=== PATIENT | female | born 1970 | race Caucasian/White ===

== ENCOUNTER 2016-10-10 15:52 | Emergency (ER) | payer SELFPAY ==
--- NOTE | 2016-10-10 18:46 | ED.PDOC ---
History of Present Illness - General Chief Complaint: Neuro Symptoms/Deficits Time Seen by Provider: 10/10/16 15:57 Source: patient Exam Limitations: no limitations - History of Present Illness Initial Comments: The patient is a 46-year-old female presenting to the emergency room secondary to what is essentially a panic attack. The patient has a long- standing history of anxiety as well as a history of pseudoseizures. She has a history of depression and substance abuse. The patient had apparently been doing okay until she ran out of her clonazepam from her primary care doctor last week and her daughter had a miscarriage. The patient became depressed and started using methamphetamines again. That in combination with her lack of her regular medications and methamphetamines led to a panic attack. She felt like she couldn't breathe. She felt tingling mouth. She felt tingling in her hands. She did not throw up. The patient received a milligram of Ativan IM here which helped her relax. Her daughter came up and talk to her. She is now mentating clearly. She reports she is not any use meth anymore. She reports that she will follow up with [facility]. She is not suicidal. She has contracted for safety. She is feeling fine at this time. She will contact her primary care doctor for refills on her routine medications. Timing/Duration: 4-6 hours Severity: moderate Improving Factors: medication Worsening Factors: nothing Allergies/Adverse Reactions: Allergies NO KNOWN ALLERGY Allergy (Verified 05/08/15 10:42) Home Medications: Ambulatory Orders Buspirone HCl 30 mg PO DAILY 05/08/15 Citalopram Hydrobromide [CeleXA] 20 mg PO DAILY 05/08/15 Hydroxyzine HCl 40 mg PO BEDTIME 05/08/15 Ondansetron Tab [Zofran Tab] 4 mg PO BID PRN #8 tab 05/08/15 Clonazepam 0.5 mg PO BID #14 tab 10/10/16 Review of Systems - Review of Systems Constitutional: States: malaise EENTM: States: no symptoms reported Respiratory: States: short of breath Cardiology: States: no symptoms reported Gastrointestinal/Abdominal: States: no symptoms reported Genitourinary: States: no symptoms reported Musculoskeletal: States: back pain - chronic Skin: States: no symptoms reported Neurological: States: anxiety, depressed Endocrine: States: no symptoms reported All other Systems: No Change from Baseline Past Medical History (General) - Patient Medical History Hx Stroke: No Hx Hypertension: No Hx Diabetes: No - Vaccination History Hx Tetanus, Diphtheria Vaccination: Yes Hx Influenza Vaccination: No - Social History Hx Tobacco Use: No Hx Alcohol Use: No - Female History Patient : No Family Medical History - Family History Mother Family History: No Known Physical Exam - Physical Exam General Appearance: Alert, Anxious, Other - the patient is initially frantic and weeping and shaking and unable to tell me her routine medications. Eye Exam: bilateral normal Ears, Nose, Throat: hearing grossly normal, normal ENT inspection - poor dentition Neck: non-tender, full range of motion, supple, normal inspection Respiratory: chest non-tender, lungs clear, normal breath sounds, no respiratory distress, no accessory muscle use Cardiovascular/Chest: normal peripheral pulses, no edema, tachycardia Peripheral Pulses: radial,right: 2+, radial,left: 2+, dorsalis pedis,right: 2+, dorsalis pedis,left: 2+ Gastrointestinal/Abdominal: non tender, soft Rectal Exam: deferred Back Exam: normal inspection, no CVA tenderness, no vertebral tenderness Extremity: normal range of motion, non-tender, normal inspection, no pedal edema , normal capillary refill Neurologic: alert, other - after the Ativan she is alert and oriented 3 and in a fairly normal mood Skin Exam: normal color Comments: Vital Signs - 24 hr 10/10/16 16:30 Pulse Rate [ 86 monitor] Respiratory 22 Rate Blood Pressure 137/81 [Left Arm] O2 Sat by Pulse 96 Oximetry Progress - Progress Progress: 10/10/16 18:47 the patient is a 46-year-old female presenting due to a panic attack related to running out of her daily benzodiazepines for her anxiety as well as methamphetamine use and a recent social stressor. The patient has contracted for safety. She will contact her counselor early next week. She has agreed to not use the methamphetamines. The patient will be written for 1 week of her clonazepam. She needs to contact her primary care doctor to get a longer refill of this and her tramadol. She has agreed to this. ER warnings given. She needs to keep well hydrated. Departure - Departure Clinical Impression: Panic attack, Drug abuse Disposition: Discharge to Home or Self Care Condition: Fair Departure Forms: ED Discharge - Pt. Copy, Patient Portal Self Enrollment Instructions: Anxiety and Panic Attacks (Alternative Therapy), Drug Abuse and Drug Addiction Diet: regular diet Activity: increase activity as tolerated Referrals: WARREN NARANJO IV, FNP [Primary Care Provider] - 1-2 Weeks Prescriptions: Clonazepam 0.5 mg PO BID #14 tab Home Medications: Ambulatory Orders Buspirone HCl 30 mg PO DAILY 05/08/15 Citalopram Hydrobromide [CeleXA] 20 mg PO DAILY 05/08/15 Hydroxyzine HCl 40 mg PO BEDTIME 05/08/15 Ondansetron Tab [Zofran Tab] 4 mg PO BID PRN #8 tab 05/08/15 Clonazepam 0.5 mg PO BID #14 tab 10/10/16 Additional Instructions: the patient is a 46-year-old female presenting due to a panic attack related to running out of her daily benzodiazepines for her anxiety as well as methamphetamine use and a recent social stressor. The patient has contracted for safety. She will contact her counselor early next week. She has agreed to not use the methamphetamines. The patient will be written for 1 week of her clonazepam. She needs to contact her primary care doctor to get a longer refill of this and her tramadol. She has agreed to this. ER warnings given. She needs to keep well hydrated.
[2016-10-10 19:26] VITALS: BP 127/81; O2SAT 97
== END 2016-10-10 19:30 | disposition home or self-care (01) ==
LOC: ER 15:52
DX: F41.0 Panic disorder [episodic paroxysmal anxiety] (principal); F19.10 Other psychoactive substance abuse, uncomplicated; Z79.899 Other long term (current) drug therapy

== ENCOUNTER 2016-12-30 14:28 | Emergency (ER) | payer OTHER ==
[2016-12-30 14:48] VITALS: TEMP 98.3; O2SAT 98
[2016-12-30 15:09] VITALS: BP 124/75
--- NOTE | 2016-12-30 15:11 | ED.PDOC ---
History of Present Illness - General Chief Complaint: Behavioral / Psych Stated Complaint: anxiety Time Seen by Provider: 12/30/16 15:02 Source: patient Exam Limitations: no limitations - History of Present Illness Initial Comments: PT STATES SHE TAKES CHRONIC CLONAZEPAM 2 MG PO QDAY FOR ANXIETY. BEEN IN [facility] 1 WK AND LAST CLONAZ WAS 1 WEEK AGO. PT STATES WHEN SHE BECOMES ANXIOUS, SHE DEVELOPS A TREMOR IN BUE, SHE PRESENTLY HAS. HAS INCR ANXIETY BECAUSE HER GRANDCHILD JUST . Timing/Duration: just prior to arrival Severity: moderate Associated Symptoms: anxiety Allergies/Adverse Reactions: Allergies NO KNOWN ALLERGY Allergy (Verified 10/10/16 19:30) Home Medications: Ambulatory Orders Buspirone HCl 30 mg PO DAILY 05/08/15 Citalopram Hydrobromide [CeleXA] 20 mg PO DAILY 05/08/15 Hydroxyzine HCl 40 mg PO BEDTIME 05/08/15 Ondansetron Tab [Zofran Tab] 4 mg PO BID PRN #8 tab 05/08/15 Clonazepam 0.5 mg PO BID #14 tab 10/10/16 Clonazepam 1 mg PO DAILY 2 Days 12/30/16 Review of Systems - Review of Systems Constitutional: States: no symptoms reported EENTM: States: no symptoms reported Respiratory: States: no symptoms reported Cardiology: States: no symptoms reported Gastrointestinal/Abdominal: States: no symptoms reported Genitourinary: States: no symptoms reported Musculoskeletal: States: no symptoms reported Skin: States: no symptoms reported Neurological: States: tremors. Denies: seizure Endocrine: States: no symptoms reported Hematologic/Lymphatic: States: no symptoms reported All other Systems: Reviewed and Negative Past Medical History (General) - Patient Medical History Hx Seizures: - dx of pseudo seizures Hx Stroke: No Hx Congestive Heart Failure: No Hx Hypertension: No Hx Diabetes: No - Vaccination History Hx Tetanus, Diphtheria Vaccination: Yes Hx Influenza Vaccination: No Hx Pneumococcal Vaccination: No - Social History Hx Tobacco Use: No Hx Alcohol Use: No Hx Substance Use: Yes - meth - Female History Patient : No Family Medical History - Family History Mother Family History: No Known Physical Exam - Physical Exam General Appearance: Alert, Anxious Eyes, Ears, Nose, Throat Exam: PERRL/EOMI, normal ENT inspection Neck: non-tender, normal inspection Respiratory: chest non-tender, lungs clear, normal breath sounds Cardiovascular/Chest: normal peripheral pulses, regular rate, rhythm Peripheral Pulses: radial,right: 2+, radial,left: 2+ Gastrointestinal/Abdominal: normal bowel sounds, non tender, soft Extremities Exam: non-tender, normal range of motion, no evidence of injury, no edema, deformity, other - MOTOR AND SENSORY WNL. PT SHAKES HER BUE AND THEY HAVE BEEN SHAKING SINCE ADMISSION. SHE IS AWAKE, ALERT AND MAKING CLEAR, NL CONVERSATION. IT IS NOT A SEIZURE. Neurological: alert, product safety associate II-XII nml as tested, oriented x 3 Appearance: appropriate appearance, appropriate insight Behavior/Eye Contact/Speech: cooperative, good eye contact, normal speech Thoughts/Hallucinations: normal thought pattern, no apparent hallucination Skin Exam: normal color, warm/dry Progress - Progress Progress: 12/30/16 16:10 UA NEG. CMP UNREMARKABLE. CBC - HGB 10, MILD ANEMIA WHICH IS NOT RELATED TO HER ANXIETY-INDUCED TREMOR. F /U W/ PCP TOMORROW FOR ANXIETY AND IN 2 WKS TO RECHECK HGB. Departure - Departure Clinical Impression: Anxiety, Anemia Disposition: Long-Term Condition: Good Departure Forms: ED Discharge - Pt. Copy, Patient Portal Self Enrollment Instructions: DI for Anxiety -- Adult Diet: resume usual diet Activity: increase activity as tolerated Referrals: WARREN NARANJO IV, FNP [Nurse Practitioner] - 1-2 Days Prescriptions: Clonazepam 1 mg PO DAILY 2 Days Home Medications: Ambulatory Orders Buspirone HCl 30 mg PO DAILY 05/08/15 Citalopram Hydrobromide [CeleXA] 20 mg PO DAILY 05/08/15 Hydroxyzine HCl 40 mg PO BEDTIME 05/08/15 Ondansetron Tab [Zofran Tab] 4 mg PO BID PRN #8 tab 05/08/15 Clonazepam 0.5 mg PO BID #14 tab 10/10/16 Clonazepam 1 mg PO DAILY 2 Days 12/30/16 Additional Instructions: The labs today show mild anemia (low hemoglobin). Please see your doctor tomorrow regarding the anxiety. Please see your doctor again in 2 weeks to recheck your hemoglobin.
== END 2016-12-30 16:19 ==
LOC: ER 14:28
DX: F41.9 Anxiety disorder, unspecified (principal); D64.9 Anemia, unspecified; R25.1 Tremor, unspecified; Z79.899 Other long term (current) drug therapy

== ENCOUNTER 2018-04-22 20:56 | Emergency (ER) | payer SELFPAY ==
[2018-04-22 21:43] VITALS: O2SAT 99
--- NOTE | 2018-04-22 22:16 | ED.PDOC ---
History of Present Illness - General Chief Complaint: Skin/Abrasion/Tear Stated Complaint: "shingles" Time Seen by Provider: 04/22/18 22:14 Source: RN notes reviewed, Vital Signs reviewed Additional Information: 47 YEAR OLD WHITE FEMALE PRESENTS WITH SKIN RASH LOCATION LEFT POSTERIOR CHEST WALL IT STARTED 3 DAYS AGO AND IT HAS BEEN PAINFUL AND ITCHY SHE HAS HISTORY OF DEPRESSION AND ANXIETY - History of Present Illness Timing/Duration: getting worse Severity: moderate Improving Factors: nothing Worsening Factors: nothing Associated Symptoms: denies symptoms Allergies/Adverse Reactions: Allergies NO KNOWN ALLERGY Allergy (Verified 10/10/16 19:30) Home Medications: Ambulatory Orders Buspirone HCl 30 mg PO DAILY 05/08/15 Citalopram Hydrobromide [CeleXA] 20 mg PO DAILY 05/08/15 Hydroxyzine HCl 40 mg PO BEDTIME 05/08/15 Ondansetron Tab [Zofran Tab] 4 mg PO BID PRN #8 tab 05/08/15 Clonazepam 0.5 mg PO BID #14 tab 10/10/16 Clonazepam 1 mg PO DAILY 2 Days tab 12/30/16 Acyclovir [Zovirax] 800 mg PO Q6HR #40 tab 04/22/18 Clonazepam [Klonopin] 1 mg PO Q12HRS #30 tab 04/22/18 Review of Systems - Review of Systems Constitutional: States: no symptoms reported EENTM: States: no symptoms reported Respiratory: States: no symptoms reported Cardiology: States: no symptoms reported Genitourinary: States: no symptoms reported Musculoskeletal: States: no symptoms reported Skin: States: see HPI Neurological: States: no symptoms reported Endocrine: States: no symptoms reported Hematologic/Lymphatic: States: no symptoms reported Past Medical History (General) - Patient Medical History Hx Seizures: - dx of pseudo seizures Hx Stroke: No Hx Congestive Heart Failure: No Hx Hypertension: No Hx Diabetes: No Hx Cancer: Yes - ovarian CA Surgical History: no surgical history - Vaccination History Hx Tetanus, Diphtheria Vaccination: Yes Hx Influenza Vaccination: No Hx Pneumococcal Vaccination: No - Social History Hx Tobacco Use: No Hx Alcohol Use: No Hx Substance Use: Yes - meth - Female History Patient : No Family Medical History - Family History Mother Family History: No Known Physical Exam - Physical Exam General Appearance: Alert, Comfortable Eyes, Ears, Nose, Throat Exam: normal ENT inspection, TMs normal, pharynx normal Neck: non-tender, full range of motion, supple Cardiovascular/Chest: normal peripheral pulses, regular rate, rhythm, no edema Respiratory: chest non-tender, lungs clear, normal breath sounds, no respiratory distress Extremity: normal range of motion, non-tender, normal inspection Neurologic: finisher wallboard and plasterboard II-XII nml as tested, no motor/sensory deficits, normal mood/ affect, oriented x 3 Skin Exam: warm/dry Skin Problem Location: torso, other - LEFT POSTERIOR CHEST WALL SHE HAS PATCHY RED VESICULAR LEISION Departure - Departure Clinical Impression: Shingles rash, Urticaria Time of Disposition: 22:19 Disposition: Discharge to Home or Self Care Condition: Fair Departure Forms: ED Discharge - Pt. Copy, Patient Portal Self Enrollment Diet: resume usual diet Referrals: Prasanth Gonzalez MD [Primary Care Provider] - 1-2 Weeks Prescriptions: Acyclovir [Zovirax] 800 mg PO Q6HR #40 tab Clonazepam [Klonopin] 1 mg PO Q12HRS #30 tab Home Medications: Ambulatory Orders Buspirone HCl 30 mg PO DAILY 05/08/15 Citalopram Hydrobromide [CeleXA] 20 mg PO DAILY 05/08/15 Hydroxyzine HCl 40 mg PO BEDTIME 05/08/15 Ondansetron Tab [Zofran Tab] 4 mg PO BID PRN #8 tab 05/08/15 Clonazepam 0.5 mg PO BID #14 tab 10/10/16 Clonazepam 1 mg PO DAILY 2 Days tab 12/30/16 Acyclovir [Zovirax] 800 mg PO Q6HR #40 tab 04/22/18 Clonazepam [Klonopin] 1 mg PO Q12HRS #30 tab 04/22/18
[2018-04-22] MEDS ORDERED: HYDROCOD/APAP 7.5/325 (ER DISP) #3 TAB PO ONE (22:21)
[2018-04-22] MEDS ORDERED: ACYCLOVIR 200 MG CAP ONE (22:51)
[2018-04-22 23:32] VITALS: BP 128/56; TEMP 97
[2018-04-23] MEDS ORDERED: ACYCLOVIR 200 MG CAP PO SCH (06:00)
== END 2018-04-22 23:05 | disposition home or self-care (01) ==
LOC: ER 20:56
DX: B02.9 Zoster without complications (principal); L50.9 Urticaria, unspecified; F41.9 Anxiety disorder, unspecified; F32.9 Major depressive disorder, single episode, unspecified; Z85.43 Personal history of malignant neoplasm of ovary; Z79.899 Other long term (current) drug therapy

== ENCOUNTER 2019-02-10 12:34 | Emergency (ER) | payer SELFPAY ==
[2019-02-10 13:23] VITALS: O2SAT 100
[2019-02-10 14:58] VITALS: BP 129/78; TEMP 97.8
== END 2019-02-10 14:58 | disposition home or self-care (01) ==
LOC: ER 12:34
DX: M54.41 Lumbago with sciatica, right side (principal); R56.9 Unspecified convulsions; F32.9 Major depressive disorder, single episode, unspecified; Z86.73 Personal history of transient ischemic attack (TIA), and cerebral infarction without residual deficits; Z79.899 Other long term (current) drug therapy; Z85.43 Personal history of malignant neoplasm of ovary

== ENCOUNTER 2019-04-04 11:51 | Emergency (ER) | payer SELFPAY ==
[2019-04-04] MEDS ORDERED: SODIUM CHLORIDE 0.9% (FLUSH) 10 ML SYG IV PRN (12:09)
[2019-04-04] MEDS ORDERED: SODIUM CHLORIDE 0.9% 1000ML 1,000 ML IVS ONE (12:09)
[2019-04-04] MEDS ORDERED: ONDANSETRON INJ 4 MG/2 ML VIAL IV ONE (12:09)
[2019-04-04] MEDS ORDERED: MORPHINE SULFATE INJ 10 MG/ML VIAL IV ONE ×2 (12:10→14:59)
[2019-04-04] MEDS ORDERED: CEFEPIME 2 GM in SODIUM CHL 0.9% 50ML MIN-BAG+ 50 ML IVPB ONE (12:43)
--- NOTE | 2019-04-04 12:47 | ED.PDOC ---
History of Present Illness - General Chief Complaint: GI Problem Stated Complaint: R abdominal discomfort, nausea Time Seen by Provider: 04/04/19 11:58 Information Source: patient - History of Present Illness Initial Comments: 48 y/o F presents to the ED c/o 1 week of worsening upper abd pain. She reports intermittent episodes of bilious vomiting as well. She denies diarrhea or fevers. She reports that she was once told that her liver tests were elevated by [facility] but cannot remember when and denies any other hx of liver dz. She has a hx of previous methamphetamine use but denies tobacco or EtOH. She reports the pain is 10/10 in severity and sharp in the epigastric and RUQ areas. She has tried several OTC medications without improvement in her sx. Review of Systems - Review of Systems Constitutional: Denies: chills, fever EENTM: Denies: nose congestion, throat pain Respiratory: Denies: cough, short of breath Cardiology: Denies: chest pain, palpitations Gastrointestinal/Abdominal: States: abdominal pain, nausea, vomiting. Denies: diarrhea Genitourinary: Denies: dysuria, frequency Musculoskeletal: Denies: joint pain, muscle pain Skin: Denies: lesions, rash Neurological: Denies: headache, numbness Past Medical History (General) - Patient Medical History Hx Seizures: - dx of pseudo seizures Hx Stroke: No Hx of COPD: No Hx Cardiac Disorders: No Hx Congestive Heart Failure: No Hx Hypertension: No Hx Diabetes: No Hx Cancer: Yes - Ovarian Hx MRSA: No Surgical History: no surgical history - Vaccination History Hx Tetanus, Diphtheria Vaccination: Yes Hx Influenza Vaccination: No Hx Pneumococcal Vaccination: No - Social History Hx Tobacco Use: No Hx Alcohol Use: No Hx Substance Use: No Hx Substance Use Treatment: No Hx Depression: Yes - Female History Patient is a Female of Child Bearing Age (10 -59 yrs old): Yes Patient : No Family Medical History - Family History Mother Family History: No Known Living Status: Still Living Physical Exam - Physical Exam General Appearance: Alert, Frail, Other - thin Eyes, Ears, Nose, Throat Exam: PERRL/EOMI, pharynx normal, scleral icterus (R), scleral icterus (L) Neck: full range of motion, normal inspection Respiratory: lungs clear, normal breath sounds, no respiratory distress Cardiovascular/Chest: normal peripheral pulses, regular rate, rhythm, no edema, no murmur Peripheral Pulses: 2+ Gastrointestinal/Abdominal: normal bowel sounds, guarding, tenderness - epigastric and RUQ Extremity: normal range of motion, normal inspection Neurologic: no motor/sensory deficits, alert, oriented x 3 Skin Exam: warm/dry, jaundice Progress - Progress Progress: 04/04/19 13:45 Discussed all lab and CT findings with pt along with need to transfer for ERCP and then cholecystectomy. Pt understands and voiced no preference on facility. 14:[address] Ulrich, hospitalist at [facility], wants to consult GI and will call back. 14:18: Dr. Ulrich, will accept pt in transfer. 14:25 Pt updated on transfer plans to [facility]. All questions/concerns were addressed. - Results/Orders Results/Orders: 04/04/19 12:09 Hold Metformin x 48Hrs [id number] IV Care:Saline Lock per Protoc QSHIFT Sodium Chloride 0.9% (Flush) [Saline Flush Syringe] 10 ml IV PRN PRN 04/04/19 13:28 BLOOD CULTURE Stat 04/04/19 13:51 Urine Culture Stat 04/04/19 14:32 Sodium Chloride 0.9% 1000ML [Ns 1000 ml] 1,000 ml IVS .QD Laboratory Results - last 24 hr 04/04/19 04/04/19 04/04/19 12:05 12:05 12:05 WBC 19.6 H RBC 3.16 L Hgb 9.7 L Hct 28.9 L MCV 91.3 MCH 30.8 MCHC 33.7 RDW 18.2 H Plt Count 986 H MPV 7.3 L Absolute Neuts (auto) Not Reportable Absolute Lymphs (auto) Not Reportable Absolute Monos (auto) Not Reportable Absolute Eos (auto) Not Reportable Neutrophils % Not Reportable Neutrophils % (Manual) 87.0 H Lymphocytes % Not Reportable Lymphocytes % (Manual) 6.0 Monocytes % Not Reportable Monocytes % (Manual) 6.0 Eosinophils % Not Reportable Basophils % Not Reportable PT INR Sodium 135 Potassium 3.5 L Chloride 103 Carbon Dioxide 21 Anion Gap 14.5 BUN 12 Creatinine 0.81 BUN/Creatinine Ratio 14.8 Random Glucose 115 H Serum Osmolality 270.8 L Lactic Acid Calcium 8.7 Total Bilirubin 6.0 H* Direct Bilirubin 4.2 H Indirect Bilirubin 1.8 H AST 37 ALT 17 Alkaline Phosphatase 1039 H Serum Total Protein 7.8 Albumin 2.5 L Lipase Serum HCG, Qual Negative Urine Color Urine Appearance Urine pH Ur Specific [place] Urine Protein Urine Glucose (UA) Urine Ketones Urine Blood Urine Nitrite Urine Bilirubin Urine Urobilinogen Ur Leukocyte Esterase Urine RBC Urine WBC Ur Epithelial Cells Urine Bacteria Urine Mucus 04/04/19 04/04/19 04/04/19 12:05 12:55 12:55 WBC RBC Hgb Hct MCV MCH MCHC RDW Plt Count MPV Absolute Neuts (auto) Absolute Lymphs (auto) Absolute Monos (auto) Absolute Eos (auto) Neutrophils % Neutrophils % (Manual) Lymphocytes % Lymphocytes % (Manual) Monocytes % Monocytes % (Manual) Eosinophils % Basophils % PT 10.4 INR 1.04 Sodium Potassium Chloride Carbon Dioxide Anion Gap BUN Creatinine BUN/Creatinine Ratio Random Glucose Serum Osmolality Lactic Acid 1.5 Calcium Total Bilirubin Direct Bilirubin Indirect Bilirubin AST ALT Alkaline Phosphatase Serum Total Protein Albumin Lipase 758 H Serum HCG, Qual Urine Color Urine Appearance Urine pH Ur Specific [place] Urine Protein Urine Glucose (UA) Urine Ketones Urine Blood Urine Nitrite Urine Bilirubin Urine Urobilinogen Ur Leukocyte Esterase Urine RBC Urine WBC Ur Epithelial Cells Urine Bacteria Urine Mucus 04/04/19 13:51 WBC RBC Hgb Hct MCV MCH MCHC RDW Plt Count MPV Absolute Neuts (auto) Absolute Lymphs (auto) Absolute Monos (auto) Absolute Eos (auto) Neutrophils % Neutrophils % (Manual) Lymphocytes % Lymphocytes % (Manual) Monocytes % Monocytes % (Manual) Eosinophils % Basophils % PT INR Sodium Potassium Chloride Carbon Dioxide Anion Gap BUN Creatinine BUN/Creatinine Ratio Random Glucose Serum Osmolality Lactic Acid Calcium Total Bilirubin Direct Bilirubin Indirect Bilirubin AST ALT Alkaline Phosphatase Serum Total Protein Albumin Lipase Serum HCG, Qual Urine Color [place] H Urine Appearance Clear Urine pH 6.0 Ur Specific [place] 1.010 Urine Protein 30 Urine Glucose (UA) Negative Urine Ketones Negative Urine Blood Negative Urine Nitrite Positive H Urine Bilirubin Large Urine Urobilinogen >= 8.0 H Ur Leukocyte Esterase Negative Urine RBC 1-3 Urine WBC 3-5 H Ur Epithelial Cells 3-5 Urine Bacteria 3+ H Urine Mucus Moderate CT Abd/Pelvis: IMPRESSION: Cholelithiasis with xanthogranulomatous cholecystitis, choledocholithiasis, intrahepatic and extrahepatic biliary duct dilation. One gallstone measuring up to 1 cm diameter lies either at the ampulla or inside the duodenal lumen. A few slightly dilated proximal small bowel loops concerning for developing ileus especially gallstone ileus. Surgical consultation recommended. No pancreatic duct dilation, but questionable subtle peripancreatic inflammation suggests developing pancreatitis. Correlate with amylase/lipase levels. Findings and recommendations were reported by telephone to Dr. Tucker by me at the time of this report. Electronically signed by: Joaquín Pastor MD 04/04/2019 1:38 PM CDT Departure - Departure Clinical Impression: Choledocholithiasis with acute cholecystitis with obstruction Sepsis Qualifiers: Sepsis type: sepsis due to unspecified organism Sepsis acute organ dysfunction status: without acute organ dysfunction Qualified Code(s): A41.9 - Sepsis, unspecified organism UTI (urinary tract infection) Qualifiers: Urinary tract infection type: site unspecified Hematuria presence: without hematuria Qualified Code(s): N39.0 - Urinary tract infection, site not specified Time of Disposition: 14:26 Disposition: Transfer to Hospital Condition: Fair Home Medications: Ambulatory Orders Buspirone HCl 30 mg PO DAILY 05/08/15 Hydroxyzine HCl 40 mg PO BEDTIME 05/08/15 Escitalopram [Lexapro] 10 mg PO DAILY 04/04/19 Transfer to Outside Facility - Transfer Information Decision to Transfer Date: 04/04/19 Decision to Transfer Time: 13:40 Reason for Transfer: required specialist not available Accepting Provider:: Dr. Ulrich Accepting Facility: [facility]
[2019-04-04] MEDS ORDERED: CEFEPIME 2 GM VIAL ONE (12:55)
[2019-04-04] MEDS ORDERED: SODIUM CHL 0.9% 50ML MIN-BAG+ 50 ML IVPB ONE (12:55)
--- NOTE | 2019-04-04 13:40 | CT ---
EXAM DESCRIPTION: Abdomen/Pelvis w/Contrast CLINICAL HISTORY: epigastric/RUQ pain COMPARISON: MRI lumbar spine May 23, 2008 TECHNIQUE: CT of the abdomen and Pelvis was performed with IV contrast. This exam was performed according to our departmental dose-optimization program, which includes automated exposure control, adjustment of the mA and/or kV according to patient size and/or use of iterative reconstruction technique. FINDINGS: 1 cm gallstone in the gallbladder. The gallbladder is at the close of normal size, measuring just under four superior transverse diameter. Asymmetric gallbladder wall thickening involving the lateral gallbladder wall measuring up to 11 mm diameter with rounded areas of decreased attenuation within the involved segment of the gallbladder wall highly suggestive of xanthogranulomatous cholecystitis. Intra and extrahepatic biliary duct dilation with dilation of the intrapancreatic common bile duct up to 17 mm diameter. There are a few small round peripherally calcified structures in or immediately adjacent to the distal common bile duct concerning for choledocholithiasis. One of these may be in the duodenal lumen or at the ampulla of Vater. The pancreatic duct is not dilated. Questionable subtle peripancreatic inflammation suggesting the possibility of mild pancreatitis. No pleural effusion. The spleen, adrenals and kidneys are unremarkable. Probable small cyst in the mid right kidney. There are a few slightly dilated small bowel loops in the left mid abdomen which contain fluid, gas and/or feculent material and suggest developing ileus. The uterus and ovaries are unremarkable for patient's age with a 2.6 cm right ovarian cyst which is likely physiologic and requires no further follow-up. The bladder is unremarkable. Moderate amount of colonic stool and gas without colonic wall thickening or pericolonic inflammation. 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 No acute bone lesion. IMPRESSION: Cholelithiasis with xanthogranulomatous cholecystitis, choledocholithiasis, intrahepatic and extrahepatic biliary duct dilation. One gallstone measuring up to 1 cm diameter lies either at the ampulla or inside the duodenal lumen. A few slightly dilated proximal small bowel loops concerning for developing ileus especially gallstone ileus. Surgical consultation recommended. No pancreatic duct dilation, but questionable subtle peripancreatic inflammation suggests developing pancreatitis. Correlate with amylase/lipase levels. Findings and recommendations were reported by telephone to Dr. Tucker by me at the time of this report. Electronically signed by: Joaquín Pastor MD 04/04/2019 1:38 PM CDT
[2019-04-04] MEDS ORDERED: SODIUM CHLORIDE 0.9% 1000ML 1,000 ML IVS PRN (14:32)
[2019-04-04 14:40] VITALS: O2SAT 98
[2019-04-04 19:57] VITALS: BP 112/71; TEMP 97.9
== END 2019-04-04 14:50 | disposition short-term general hospital (02) ==
LOC: ER 11:51
DX: K80.43 Calculus of bile duct with acute cholecystitis with obstruction (principal); A41.9 Sepsis, unspecified organism; N39.0 Urinary tract infection, site not specified; F32.9 Major depressive disorder, single episode, unspecified; Z85.43 Personal history of malignant neoplasm of ovary
CPT/HCPCS: 74177; 80048; 80076; 81001; 83605; 83690; 84703; 85025; 85610; 87040; 87086; J0692; J2270; J2405; J7030; J7050

== ENCOUNTER 2019-07-25 12:24 | Emergency (ER) | payer SELFPAY ==
[2019-07-25 12:40] VITALS: TEMP 97.9
--- NOTE | 2019-07-25 12:59 | ED.PDOC ---
History of Present Illness - General Chief Complaint: Dental/Mouth Stated Complaint: dental pain Time Seen by Provider: 07/25/19 12:56 Source: patient Exam Limitations: no limitations - History of Present Illness Initial Comments: The patient is a 49-year-old female presented to the emergency room secondary to multiple infected dental caries to the anterior mandible. The patient has multiple fractured teeth and caries. No obvious abscess formation but she does have a small amount of pus draining from the base of several teeth. No sepsis. No fever. This is obviously uncomfortable. Timing/Duration: 1 week Severity: moderate Improving Factors: nothing Worsening Factors: eating Associated Symptoms: malaise Allergies/Adverse Reactions: Allergies NO KNOWN ALLERGY Allergy (Verified 02/10/19 13:09) Home Medications: Ambulatory Orders Buspirone HCl 30 mg PO DAILY 05/08/15 Hydroxyzine HCl [Hydroxyzine Hydrochloride] 40 mg PO BEDTIME 05/08/15 Escitalopram [Lexapro] 10 mg PO DAILY 04/04/19 Cephalexin Monohydrate [Keflex] 500 mg PO Q8H #30 cap 07/25/19 Review of Systems - Review of Systems Constitutional: States: malaise EENTM: States: other - Dental pain Respiratory: States: no symptoms reported Cardiology: States: no symptoms reported Gastrointestinal/Abdominal: States: no symptoms reported Genitourinary: States: no symptoms reported Musculoskeletal: States: no symptoms reported Skin: States: no symptoms reported Neurological: States: no symptoms reported Endocrine: States: no symptoms reported All other Systems: No Change from Baseline Past Medical History (General) - Patient Medical History Hx Seizures: No Hx Stroke: No Hx Dementia: No Hx Asthma: No Hx of COPD: No Hx Cardiac Disorders: No Hx Congestive Heart Failure: No Hx Pacemaker: No Hx Hypertension: No Hx Thyroid Disease: No Hx Diabetes: No Hx Gastroesophageal Reflux: No Hx Renal Disease: No Hx Cancer: No Hx of HIV: No Hx Hepatitis C: No Hx MRSA: No Surgical History: no surgical history - Vaccination History Hx Tetanus, Diphtheria Vaccination: No Hx Influenza Vaccination: No Hx Pneumococcal Vaccination: No Immunizations Up to Date: No - Social History Hx Tobacco Use: No Hx Chewing Tobacco Use: No Hx Alcohol Use: No Hx Substance Use: No Hx Substance Use Treatment: No Hx Depression: No Feels Threatened In Home Enviroment: No Feels Threatened In a Relationship: No Hx Physical Abuse: No Hx Emotional Abuse: No Hx Suspected Abuse: No - Female History Patient is a Female of Child Bearing Age (10 -59 yrs old): Yes Patient : No - Triage Comment ED Triage Comment: Swelling and pain on the lower jaw. Family Medical History - Family History Mother Family History: No Known Living Status: Still Living Physical Exam - Physical Exam General Appearance: Alert, Comfortable, No apparent distress Eye Exam: bilateral normal Ears, Nose, Throat: hearing grossly normal, other - Extremely poor dentition. See history of present illness. Neck: full range of motion, supple Respiratory: no respiratory distress, no accessory muscle use Cardiovascular/Chest: no edema Rectal Exam: deferred Extremity: normal range of motion, normal capillary refill Neurologic: customer service leader II-XII nml as tested, alert, normal mood/affect, oriented x 3 Skin Exam: normal color Comments: Vital Signs - 24 hr 07/25/19 12:35 Temperature 97.9 F Pulse Rate [R 77 Finger] Respiratory 16 Rate Blood Pressure 144/101 [Right Arm] O2 Sat by Pulse 97 Oximetry Progress - Progress Progress: 07/25/19 12:58 The patient is a 49-year-old female presenting secondary to infected dental caries. She will be placed on Keflex for the next 10 days. She needs to maintain good dental hygiene along with mouth washing. She needs to follow-up with a dentist likely for tooth extractions in the near future. ER warnings wer e given for any obvious worsening. No evidence of sepsis at this time. No evidence of drainable abscess at this time. [email or web address] [id number] Departure - Departure Clinical Impression: Infected dental caries Disposition: Discharge to Home or Self Care Condition: Fair Departure Forms: ED Discharge - Pt. Copy, Patient Portal Self Enrollment Instructions: DI for Dental Pain Diet: regular diet Activity: increase activity as tolerated Referrals: WARREN NARANJO IV, COOK FRY [Primary Care Provider] - 1-2 Weeks Prescriptions: Cephalexin Monohydrate [Keflex] 500 mg PO Q8H #30 cap Home Medications: Ambulatory Orders Buspirone HCl 30 mg PO DAILY 05/08/15 Hydroxyzine HCl [Hydroxyzine Hydrochloride] 40 mg PO BEDTIME 05/08/15 Escitalopram [Lexapro] 10 mg PO DAILY 04/04/19 Cephalexin Monohydrate [Keflex] 500 mg PO Q8H #30 cap 07/25/19 Additional Instructions: The patient is a 49-year-old female presenting secondary to infected dental caries. She will be placed on Keflex for the next 10 days. She needs to maintain good dental hygiene along with mouth washing. She needs to follow-up with a dentist likely for tooth extractions in the near future. ER warnings were given for any obvious worsening. No evidence of sepsis at this time. No evidence of drainable abscess at this time.
[2019-07-25 13:04] VITALS: BP 155/78; O2SAT 98
== END 2019-07-25 13:04 | disposition home or self-care (01) ==
LOC: ER 12:24
DX: K04.7 Periapical abscess without sinus (principal); K02.9 Dental caries, unspecified; S02.5XXA Fracture of tooth (traumatic), initial encounter for closed fracture; X58.XXXA Exposure to other specified factors, initial encounter; Y92.9 Unspecified place or not applicable; Z79.899 Other long term (current) drug therapy

== ENCOUNTER 2019-11-18 11:28 | Emergency (ER) | payer SELFPAY ==
[2019-11-18] MEDS ORDERED: IBUPROFEN 200 MG TAB PO ONE (11:45)
[2019-11-18] MEDS ORDERED: METHOCARBAMOL 750 MG TAB PO ONE (11:45)
[2019-11-18] MEDS ORDERED: traMADol HCL 50 MG TAB PO ONE (11:45)
[2019-11-18 11:50] VITALS: TEMP 97; O2SAT 100
--- NOTE | 2019-11-18 11:50 | ED.PDOC ---
History of Present Illness - General Chief Complaint: Back Pain or Injury Stated Complaint: back pain Time Seen by Provider: 11/18/19 11:41 Source: patient, RN notes reviewed, Vital Signs reviewed Exam Limitations: no limitations - History of Present Illness Initial Comments: This is a 49-year-old female with longstanding history of chronic low back pain, previously saw pain management in [place] greater than 10 years ago. She is reporting worsening back pain radiating down the right leg for the past 2 days after she injured her back lifting a mattress into a pickup truck. She denies any incontinence of bowel/bladder. She denies any falls. No fevers, no prior back surgeries. She states the pain is similar in quality and location as her chronic back pain, but more severe.Patient is able to ambulate unassisted Allergies/Adverse Reactions: Allergies NO KNOWN ALLERGY Allergy (Verified 02/10/19 13:09) Home Medications: Ambulatory Orders Ibuprofen [Motrin] 400 mg PO Q6HR PRN #20 tab 11/18/19 Methocarbamol [Robaxin] 500 - 1,000 mg PO Q6HR PRN #20 tab 11/18/19 RX: Tramadol HCl 50 - 100 mg PO Q6H PRN #20 tab 11/18/19 Review of Systems - Review of Systems Constitutional: Denies: chills, fever Respiratory: Denies: orthopnea, short of breath Cardiology: Denies: chest pain, edema Gastrointestinal/Abdominal: States: other - No incontinence of bowel. Denies: abdominal pain, nausea, vomiting Genitourinary: States: other - No incontinence of urine. Denies: dysuria, frequency, hematuria Musculoskeletal: States: back pain. Denies: joint pain, muscle stiffness, neck pain Neurological: Denies: numbness, paresthesia, seizure, tingling, weakness Past Medical History (General) - Patient Medical History Hx Seizures: No Hx Stroke: No Hx Dementia: No Hx Asthma: No Hx of COPD: No Hx Cardiac Disorders: No Hx Congestive Heart Failure: No Hx Pacemaker: No Hx Hypertension: No Hx Thyroid Disease: No Hx Diabetes: No Hx Gastroesophageal Reflux: No Hx Renal Disease: No Hx Cancer: No Hx of HIV: No Hx Hepatitis C: No Hx MRSA: No - Vaccination History Hx Tetanus, Diphtheria Vaccination: No Hx Influenza Vaccination: No Hx Pneumococcal Vaccination: No - Social History Hx Tobacco Use: No Hx Chewing Tobacco Use: No Hx Alcohol Use: No Hx Substance Use: No Hx Substance Use Treatment: No Hx Depression: No Hx Physical Abuse: No Hx Emotional Abuse: No Hx Suspected Abuse: No - Female History Patient : No Family Medical History - Family History Mother Family History: No Known Living Status: Still Living Physical Exam - Physical Exam General Appearance: Alert, Comfortable, No apparent distress Neck Exam: non-tender, full range of motion, normal alignment Cardiovascular/Respiratory: regular rate, rhythm, no M/R/G, normal peripheral pulses, no JVD, normal breath sounds Gastrointestinal/Abdominal: non tender, soft Back Exam: normal inspection, no CVA tenderness, no vertebral tenderness, other - Right paralumbar muscle tenderness and tenderness over the right SI joint Extremity Exam: no evidence of injury, normal range of motion Neurologic: alert, oriented x 3 Skin Exam: normal color, warm/dry Progress - Progress Progress: 11/18/19 11:40 Discussed plan for discharge home. Recommended follow-up with PCP in 3 to 5 days for recheck and ongoing pain management. Strict warnings given to return the emergency room for fever, increasing pain, inability to walk, incontinence of bowel/bladder, or any other concerns. DDX: Acute on chronic low back pain, suspect HNP, very low suspicion for epidural abscess/cauda equina/compressive myelopathy based on exam MDM: Acute exacerbation of chronic low back pain, no red flags for acute spinal cord emergency. Longstanding history of chronic low back pain. Suspect HNP. Given absence of significant trauma, do not feel imaging will be of any benefit in the emergency department. I explained she may need an MRI on an outpatient basis, but this will need to be scheduled through her primary care doctor. Sheng Clark DO [facility] #[id number] Departure - Departure Clinical Impression: Acute exacerbation of chronic low back pain, Sciatica Disposition: Discharge to Home or Self Care Condition: Good Departure Forms: ED Discharge - Pt. Copy, Patient Portal Self Enrollment Instructions: DI for Back Pain With Sciatica Referrals: WARREN NARANJO IV, WELDING INSPECTOR [Primary Care Provider] - 1-2 Weeks Prescriptions: Ibuprofen [Motrin] 400 mg PO Q6HR PRN #20 tab PRN Reason: Pain Methocarbamol [Robaxin] 500 - 1,000 mg PO Q6HR PRN #20 tab PRN Reason: Muscle Spasms RX: Tramadol HCl 50 - 100 mg PO Q6H PRN #20 tab PRN Reason: Pain Home Medications: Ambulatory Orders Ibuprofen [Motrin] 400 mg PO Q6HR PRN #20 tab 11/18/19 Methocarbamol [Robaxin] 500 - 1,000 mg PO Q6HR PRN #20 tab 11/18/19 RX: Tramadol HCl 50 - 100 mg PO Q6H PRN #20 tab 11/18/19
[2019-11-18 12:00] VITALS: BP 149/88
== END 2019-11-18 11:57 | disposition home or self-care (01) ==
LOC: ER 11:28
DX: M54.41 Lumbago with sciatica, right side (principal)

== ENCOUNTER 2020-01-20 15:02 | Emergency (ER) | payer SELFPAY ==
[2020-01-20 15:21] VITALS: BP 180/120; TEMP 97.8; O2SAT 100
--- NOTE | 2020-01-20 15:25 | ED.PDOC ---
History of Present Illness - General Chief Complaint: General Stated Complaint: Chronic back pain, new onset R leg/foot pain Time Seen by Provider: 01/20/20 15:12 Source: patient, RN notes reviewed, Vital Signs reviewed - History of Present Illness Initial Comments: This is a 49-year-old female with longstanding history of chronic low back pain presenting to the emergency department with low back pain radiating down the right leg down to her toes. Pain began yesterday after she was helping her daughter move. She states she was lifting boxes, there was no trauma/injury. She denies any incontinence of bowel/bladder, no fever. She was seen by me in the emergency department in November 2019, and MRI was recommended at that time, patient has yet to follow-up with PCP to arrange for outpatient MRI. Allergies/Adverse Reactions: Allergies NO KNOWN ALLERGY Allergy (Verified 01/20/20 15:21) Home Medications: Ambulatory Orders Ibuprofen [Motrin] 400 mg PO Q6HR PRN #20 tab 11/18/19 Methocarbamol [Robaxin] 500 - 1,000 mg PO Q6HR PRN #20 tab 11/18/19 Tramadol HCl 50 - 100 mg PO Q6H PRN #20 tab 11/18/19 Ibuprofen [Motrin] 400 mg PO Q6H PRN #20 tab 01/20/20 Methocarbamol [Robaxin] 500 - 1,000 mg PO Q6H PRN #20 tab 01/20/20 Methylprednisolone [Medrol Dose Apollo] 4 mg PO DAILY 6 Days #21 tab 01/20/20 Tramadol HCl 50 - 100 mg PO Q6H PRN #20 tab 01/20/20 Review of Systems - Review of Systems Constitutional: Denies: chills, fever EENTM: Denies: ear pain, nose pain Respiratory: Denies: orthopnea, short of breath, wheezing Cardiology: Denies: chest pain, edema Genitourinary: Denies: dysuria, frequency, hematuria Musculoskeletal: States: back pain. Denies: joint swelling, muscle stiffness, neck pain Skin: Denies: lesions, rash Neurological: States: paresthesia. Denies: headache, numbness, weakness Past Medical History (General) - Patient Medical History Hx Seizures: No Hx Stroke: No Hx Dementia: No Hx Asthma: No Hx of COPD: No Hx Cardiac Disorders: No Hx Congestive Heart Failure: No Hx Pacemaker: No Hx Hypertension: No Hx Thyroid Disease: No Hx Diabetes: No Hx Gastroesophageal Reflux: No Hx Renal Disease: No Hx Cancer: No Hx of HIV: No Hx Hepatitis C: No Hx MRSA: No Surgical History: no surgical history - Vaccination History Hx Tetanus, Diphtheria Vaccination: No Hx Influenza Vaccination: No Hx Pneumococcal Vaccination: No - Social History Hx Tobacco Use: No Hx Chewing Tobacco Use: No Hx Alcohol Use: No Hx Substance Use: No Hx Substance Use Treatment: No Hx Depression: No Hx Physical Abuse: No Hx Emotional Abuse: No Hx Suspected Abuse: No - Female History Patient is a Female of Child Bearing Age (10 -59 yrs old): Yes Patient : No - Denies Family Medical History - Family History Mother Family History: No Known Living Status: Still Living Physical Exam - Physical Exam General Appearance: Alert, Comfortable Neck: non-tender, full range of motion, supple Respiratory: lungs clear, normal breath sounds, no respiratory distress, no accessory muscle use Cardiovascular/Chest: normal peripheral pulses, regular rate, rhythm, no edema, no gallop Peripheral Pulses: dorsalis pedis,right: 2+, dorsalis pedis,left: 2+ Gastrointestinal/Abdominal: non tender, soft Back Exam: normal inspection, other - Right paralumbar muscle tenderness as well as tenderness over the right SI joint Extremity: non-tender, normal inspection Neurologic: alert, normal mood/affect, oriented x 3, other - No motor weakness, patient reports decreased sensation to the right calf, normal sensation to the right thigh Skin Exam: normal color, warm/dry Progress - Progress Progress: MDM: Patient has acute on chronic low back pain with right-sided sciatica. No previous back surgeries. No hardware. No fever. No incontinence of bowel/bladder. No red flag symptoms for cauda equina, compressive myelopathy, or epidural abscess. She says the right-sided sciatica is new, strong suspect herniated nucleus pulposus. Will add short course of steroids to analgesics, NSAIDs and muscle relaxants. Recommend follow-up with PCP next week for recheck and discuss outpatient MRI. Strict warnings given to return the emergency room for fever, worsening back pain, inability to walk, incontinence of bowel/bladder, or other concerns Sheng Clark DO [facility] #[id number] Departure - Departure Clinical Impression: Acute exacerbation of chronic low back pain Sciatica Qualifiers: Laterality: right Qualified Code(s): M54.31 - Sciatica, right side Disposition: Discharge to Home or Self Care Condition: Good Departure Forms: ED Discharge - Pt. Copy, Patient Portal Self Enrollment Instructions: Low Back Pain (DC), Sciatica Exercises Diet: resume usual diet Activity: increase activity as tolerated, no lifting Referrals: WARREN NARANJO IV, AUTOMATED TELLER MANAGER [Primary Care Provider] - 1-2 Weeks Prescriptions: Methylprednisolone [Medrol Dose Apollo] 4 mg PO DAILY 6 Days #21 tab Ibuprofen [Motrin] 400 mg PO Q6H PRN #20 tab PRN Reason: Mild To Moderate Pain Methocarbamol [Robaxin] 500 - 1,000 mg PO Q6H PRN #20 tab PRN Reason: Muscle Spasms Tramadol HCl 50 - 100 mg PO Q6H PRN #20 tab PRN Reason: Moderate To Severe Pain Home Medications: Ambulatory Orders Ibuprofen [Motrin] 400 mg PO Q6HR PRN #20 tab 11/18/19 Methocarbamol [Robaxin] 500 - 1,000 mg PO Q6HR PRN #20 tab 11/18/19 Tramadol HCl 50 - 100 mg PO Q6H PRN #20 tab 11/18/19 Ibuprofen [Motrin] 400 mg PO Q6H PRN #20 tab 01/20/20 Methocarbamol [Robaxin] 500 - 1,000 mg PO Q6H PRN #20 tab 01/20/20 Methylprednisolone [Medrol Dose Apollo] 4 mg PO DAILY 6 Days #21 tab 01/20/20 Tramadol HCl 50 - 100 mg PO Q6H PRN #20 tab 01/20/20
[2020-01-20] MEDS ORDERED: METHOCARBAMOL 750 MG TAB PO ONE (15:31)
[2020-01-20] MEDS ORDERED: traMADol HCL 50 MG TAB PO ONE (15:31)
[2020-01-20] MEDS ORDERED: IBUPROFEN 200 MG TAB PO ONE (15:31)
== END 2020-01-20 15:45 | disposition home or self-care (01) ==
LOC: ER 15:02
DX: M54.41 Lumbago with sciatica, right side (principal); G89.29 Other chronic pain